=== PATIENT | female | born 1955 | race Caucasian/White ===

== ENCOUNTER → 2017-01-27 | Outpatient (CLI) | payer MEDICARE, OTHER ==
[~2017-01-27] MED LIST: ABILIFY2 MG PO; ACETAMINOPHEN325 MG PO; ADVAIR 100-501 EACH INH; ADVOCATE SYRIN1 EAC1; ALBUTEROL2.5 MG/31 INH; ALENDRONATE SOD70 MG PO; ANTI-ITCH28 GM TOP; ARIPIPRAZOLE5 MG PO; ASPIRIN LO-DOSE81 MG PO; AUGMENTIN875 MG PO; AZELASTINE HCL6 ML; AZELASTINE HCL6 ML OPHTH; AZELASTINE137 MCG/0. NOSE; BACTRIM DS1 TAB PO; BENADRYL25 MG PO; BLOOD GLUCOSE1 EAC7; BOOST GLUCOSE237 ML PO; BRILINTA90 MG PO; CALCIUM 500 +1 EAC5 PO; CALCIUM CARBON600 MG; CIPRO500 MG PO; CLARINEX5 MG PO; COZAAR100 MG PO; CREON 121 CAP PO; CREON PO; DELTASONE10 MG PO; DELTASONE20 MG PO; DELTASONE5 MG PO; DRISDOL 5050000 UNIT PO; ENSURE COMPLET237 ML PO; EUCERIN INTENS113 GM TOP; FEOSOL325 MG PO; FLAGYL500 MG PO; FLEXERIL10 MG PO; FLONASE 50 MCG/16 GM NOSE; FLORASTOR250 MG PO; FOSAMAX70 MG PO; GABAPENTIN300 MG PO; GLUCAGON 1 MG PE1 MG SUB-Q; GLUCAGON/GLUCAGE1 MG IM; GLUCOPHAGE1000 MG PO; GLUCOSE4 GM PO; GLUCOTROL10 MG PO; HUMALOG100 UNIT/1 SUB-Q; HUMULIN 70100 UNIT/M SUB-Q; IMODIUM2 MG PO; K-TAB ER20 MEQ PO; LACTINEX (FLORA1 TAB PO; LASIX20 MG PO; LASIX40 MG PO; LEVEMIR100 UNIT/1 SUB-Q; LEVOTHROID (SY50 MCG PO; LISINOPRIL30 MG PO; MAALOX LIQ UNIT30 ML PO; MACROBID100 MG PO; MAG-OX-400(241400 MG PO; MAGOX 400400 MG PO; MILK OF MA400 MG/5 M PO; MINERIN CREME454 GM TOP; MINOCIN100 M2 PO; MIRTAZAPINE7.5 MG PO; NATURAL BALANCE15 ML OPHTH; NEXIUM40 MG PO; NICODERM/HABITR21 MG TRANS; NORCO 5-325 MG1 TAB PO; NORCO 5-325 TA1 EACH PO; NORVASC5 MG PO; NOVOLOG FL100 UNIT/1 SUB-Q; NOVOLOG MI100 UNIT/1 SUB-Q; NOVOLOG100 UNIT/M SUB-Q; OCEAN NASAL) (A44 ML; OCEAN NASAL) (A44 ML NOSE; OSCAL + D500 MG PO; PATANOL 0.1% DR0.1 % OPHTH; PHILLIPS500 MG PO; PRINIVIL OR ZES10 MG PO; PROTONIX40 MG PO; PROVENTIL OR V6.7 GM INH; REMERON15 MG PO; ROBITUSSIN100 MG/5 M PO; SARNA222 ML TOP; SINGULAIR10 MG; SINGULAIR10 MG PO; SODIUM BICARBO650 MG PO; SYMBICORT 80-10.2 GM INH; TEARGEN1 BOT OPHTH; TEMOVATE30 GM TOP; TESSALON PERLE100 MG PO; THERAGRAN-M1 TAB PO; TOPROL XL 5050 MG PO; TOPROL XL25 MG PO; TRIACET 0.1% 8080 GM TOP; TRIAMCINOLONE454 GM TOP; TUMS EX PO; TUMS REGULAR ST1 TAB PO; TYLENOL325 MG PO; ULTRAM50 MG PO; VITAMIN A10000 UNIT PO; VITAMIN D-32000 UNI1 PO; VITAMIN D2000 UNI1 PO; ZAROXOLYN5 MG; ZEASORB71 GM TOP; ZOFRAN4 MG PO; ZYPREXA ZYDI5 MG PO; ZYRTEC10 MG PO
== END ==
LOC: LFPA 12:17
DX: E50.9 Vitamin A deficiency, unspecified (principal); M81.0 Age-related osteoporosis without current pathological fracture

== ENCOUNTER → 2017-03-31 | Outpatient (CLI) | payer MEDICARE, OTHER | END | disposition disaster alternative care site (69) | LOC: LFPA 09:52 | DX: E55.9 Vitamin D deficiency, unspecified (principal); E50.9 Vitamin A deficiency, unspecified ==

== ENCOUNTER → 2017-05-12 | Outpatient (CLI) | payer MEDICARE, OTHER | END | disposition disaster alternative care site (69) | LOC: LFPA 09:37 | DX: E50.9 Vitamin A deficiency, unspecified (principal) ==

== ENCOUNTER 2017-05-22 07:04 | Inpatient (IN) | payer MEDICARE, OTHER, MEDICAID ==
[~2017-05-22] VITALS: Ht 175.3 cm; Wt 79.1 kg
--- NOTE | ~2017-05-22 | CON ---
PATIENT'S NAME: CHA PRADO [facility] AGE: 61 Y [address] ROOM: [address] [address] LOCATION: [facility] [place] ADMIT DATE: 05/25/2017 Consultation DISCHARGE DATE: FAMILY PHYSICIAN: Brennon Cohen MD ATTENDING PHYSICIAN: FAHEEM TAYLOR DATE OF CONSULTATION: 05/26/2017 IDENTIFYING DATA: Cha is a 61-year-old . She is an [place] female, who lives in an assisted living facility in [place], admitted for a skin rash, seen on a consultation requested by the hospitalist for evaluation of her irritability and aggression. The patient was seen one-to-one in her room today. More than 50% of time spent in counseling and coordination of care. Information also obtained from the nurse, Monica. CHIEF COMPLAINT: "Life has been hell for 4 years." HISTORY OF PRESENT ILLNESS: The patient states that she is very frustrated with all the things going on. She is frustrated with being in the hospital. States that she is being forced to stay here. Everyday they find new things to keep her here. States that her kids do not treat her well. It has been a mess. Her 4 years ago and things have not been the same since. States that she has been put in an assisted living facility after she was in a care home as they felt that she could not keep herself safe. She had broken her right hip twice, left hip once, had injury to her hand and sepsis related to that. Recently, she has been hospitalized secondary to having an allergic reaction to a medication. States that all she wants is to just get her dog and go back home, but her children are trying to sell her dog. She wants her bank account back, and she is upset that she has no rights. Feels ignored and is just frustrated at having all the different health issues. Denies feeling hopeless or helpless. No thoughts of hurting or killing herself or anybody else. No racing thoughts or feeling hyper. Denies seeing things or hearing things which other people cannot hear or see. PAST PSYCHIATRIC HISTORY: None. Never been seen by a psychiatrist. Never been on psychotropic medications. MEDICAL AND SURGICAL HISTORY: Has multiple health issues. Has history of diabetes, hypertension, seasonal allergies, status post multiple hip fractures. For more, refer to history and physical. No head injuries or seizures. PATIENT'S NAME: CHA PRADO [facility] AGE: 61 Y [address] ROOM: [id number] [place], [place] [address] LOCATION: [facility] [place] ADMIT DATE: 05/25/2017 Consultation DISCHARGE DATE: FAMILY PHYSICIAN: Brennon Cohen MD ATTENDING PHYSICIAN: FAHEEM TAYLOR ALLERGIES: THE PATIENT IS ALLERGIC TO MORPHINE, OXYCODONE, AND GABAPENTIN. DRUG AND ALCOHOL HISTORY: The patient denies any use of drugs or alcohol. FAMILY HISTORY: Denies any psychiatric history in the family. PERSONAL AND SOCIAL HISTORY: The patient is originally from [place]. States that she moved to [place] and then got there. Denies any history of abuse growing up. No history of any physical or sexual trauma. She currently is a , has twins, and has a court-appointed guardian now. MENTAL STATUS EXAM: The patient is alert, awake, and oriented to time, place, and person. She is cooperative with fair hygiene, fair grooming. Appropriately dressed. Good eye contact. Psychomotor retardation. No rigidity or tremor. Affect is of decreased range, increased intensity. Mood is irritable. Speech is fluent. No thought disorder. No suicidal or homicidal ideation. Has some persecutory delusions. Poor insight, poor judgment. No problem with memory and concentration. ASSESSMENT: 1. Adjustment disorder, chronic with mixed emotions. 2. Rule out mood disorder secondary to general medical conditions including her variation in blood sugars. 3. Rule out impulse control disorder, unspecified. PLAN: At this time, I recommended that the patient be given a trial of Abilify 2 mg at bedtime to help with mood stability, irritability, and impulsivity. The patient is not willing to comply with it. The primary provider will have to get consent from the patient's guardian and consider giving a trial of that medication. [place] choice would have been a mood stabilizer like Depakote, but considering the patient's recent reaction to gabapentin and she had a rash, I am not very open to trying that. Abilify is a good option as well as it will help with paranoia to which the patient has been exhibiting. Monitor closely for any treatment-emergent side effects. Continue to monitor her physical health as other variable blood sugars can contribute to the anger and the irritability as well. The patient will be seen as needed by the Psychiatry Service. PATIENT'S NAME: CHA PRADO [facility] AGE: 61 Y [address] ROOM: [place] [address] LOCATION: [facility] [place] ADMIT DATE: 05/25/2017 Consultation DISCHARGE DATE: FAMILY PHYSICIAN: Brennon Cohen MD ATTENDING PHYSICIAN: FAHEEM TAYLOR Thanks for this interesting referral. MD YAHIR DAMIAN/modl /[id number] d: 05/26/174 t: 05/27/17 1349, CONSULTATION REPORT
--- NOTE | ~2017-05-22 | ER ---
PATIENT'S NAME: NIRANJAN PRADO [facility] AGE: 61 Y [address] ROOM: [place] [address] LOCATION: [facility] [place] ADMIT DATE: 05/22/2017 ER/Outpatient Report DISCHARGE DATE: FAMILY PHYSICIAN: Brennon Cohen MD ATTENDING PHYSICIAN: FAHEEM TAYLOR CHIEF COMPLAINT: Rash and foot pain. HISTORY OF PRESENT ILLNESS: Ms. Prado presents by ambulance for evaluation of rash and foot pain. Her rash has been present for the last 3-4 days. It has been worse since she had an increase in her gabapentin. She states that she was placed on a steroid cream by basketball player on Thursday, but feels the rash is continuing to worsen. She states that it is so painful she cannot sleep or even can attempt to walk at this time. It is unclear why but she has a court-appointed guardian, named Evette Parnell whom I spoke with. No other acute issues. She does not endorse any other particular concerns. PAST MEDICAL HISTORY: Reviewed from prior records and facility records and are documented on the record and reviewed by me. SOCIAL HISTORY: Reviewed from prior records and facility records and are documented on the record and reviewed by me. MEDICATIONS: Reviewed from prior records and facility records and are documented on the record and reviewed by me. ALLERGIES: REVIEWED FROM PRIOR RECORDS AND FACILITY RECORDS AND ARE DOCUMENTED ON THE RECORD AND REVIEWED BY ME. REVIEW OF SYSTEMS: All systems reviewed and negative except as noted in the HPI. PHYSICAL EXAMINATION: VITAL SIGNS: Blood pressure 161/70, pulse 93, respiratory rate 20, temperature 97.5, and SpO2 is 100% on room air. Pain is 8/10. GENERAL: Age-appropriate female, slightly abrasive but otherwise unremarkable. In obvious discomfort, but no pain or distress. NEUROLOGIC: The patient is awake and alert. GCS is 15. No focal deficits. No asymmetry. Moves all extremities. PATIENT'S NAME: NIRANJAN PRADO [facility] AGE: 61 Y [address] ROOM: [place] [address] LOCATION: [facility] [place] ADMIT DATE: 05/22/2017 ER/Outpatient Report DISCHARGE DATE: FAMILY PHYSICIAN: Brennon Cohen MD ATTENDING PHYSICIAN: FAHEEM TAYLOR HEENT: Normocephalic, atraumatic. Eyes are PERRL. Oropharynx is clear. NECK: Supple. Trachea is midline. CHEST/HEART: Regular rate and rhythm. No murmurs. LUNGS: Clear to auscultation bilateral. No rhonchi, wheezes, or rales. ABDOMEN: Soft, nontender, and nondistended. No rebound or guarding. EXTREMITIES: Warm and well perfused. BACK: Grossly normal to inspection and palpation. SKIN: Notable for a macular rash, most prominent on the lower extremities and posterior aspects. It does tend to spare the crura. There is some excoriation the bilateral inguinal regions, however. The rash is warm, it is very tender to the touch. There is no desquamation or bleeding. The oral mucosa does not appear to be involved. LABORATORY DATA AND X-RAYS: Chest x-ray was unremarkable per my review. Lactate is 1.4. CMS: Sodium of 147, chloride of 119. Renal function is unremarkable. LFTs grossly unremarkable, otherwise. CRP is below threshold. CBC: White count is 5.2, hemoglobin 11.1, and platelets of 213. ESR is 12. INR is 1. Procalcitonin is undetectable. IMPRESSION: 1. Rash with significant pain and inability to walk. 2. Mild hypernatremia. 3. Uncontrolled pain. EMERGENCY DEPARTMENT COURSE: The patient was seen and evaluated as above. Her rash is not consistent with Lima-Owen syndrome or toxic epidermal necrolysis at this time. She is, however, having poor response to her current outpatient regimen. She was given fentanyl for pain, which did help her feel quite a bit better. She will need to be admitted for this issue, as she is currently unable to walk. No evidence of pneumonia or other infection at this time, otherwise. She was given some Benadryl and Solu-Medrol to help with her rash per the hospitalist. She will be admitted to their service for further evaluation and treatment. MD NADEEM DC/carlos eduardo /[id number] d: 05/23/17 0013 t: 05/25/17717, OUTPATIENT REPORT
--- NOTE | ~2017-05-22 | HP ---
PATIENT'S NAME: NIRANJAN PRADO [facility] AGE: 61 Y [address] ROOM: [address] [address] [place] [facility] [place]: 05/22/2017 History & Physical DISCHARGE DATE: FAMILY PHYSICIAN: Brennon Cohen MD ATTENDING PHYSICIAN: FAHEEM TAYLOR DATE OF SERVICE: CHIEF COMPLAINT: Generalized skin rash. HISTORY OF PRESENT ILLNESS: This is a 61-year-old female who says that roughly about 1-1/2 months ago, the patient was put on medication with gabapentin and patient develop a generalized skin rash with a burning sensation on the rash over the body. The medication at that time, was stopped and the patient was treated with topical steroids. She was on topical steroids for 3 weeks and her rash totally went away. However, during her followup with her medical provider one week ago because of patient's diabetes, peripheral neuropathy, the patient was put back again on gabapentin at 300 mg t.i.d. and just two days ago, again the patient developed the same type of rash like last time with a generalized rash and painful rash over the body. The rash started on bilateral thighs and then spread to the other parts of the body. Because of this, the patient came here for evaluation. The patient says that the first time she had this rash she also had a skin biopsy done by a knot borer. This confirmed it was a drug reaction. She also states that she has a few days of urinary frequency, urgency, and dysuria, and some chills. She denies any other symptoms. She also has been feeling very thirsty, however, the place which she lives says that they do not really bring her much water to drink and she was constantly asking for water to drink at the place that she currently lives. REVIEW OF SYSTEMS: As mentioned in history of present illness. All other systems were reviewed and were negative except for those mentioned in the history of present illness. PAST MEDICAL HISTORY: 1. History of C. difficile in the past. 2. Hypertension. 3. Diabetes, type 2. 4. History of recurrent UTIs in the past. 5. Coronary artery disease status post one drug-eluting stent to the right PATIENT'S NAME: NIRANJAN PRADO [facility] AGE: 61 Y [address] ROOM: [address] [address] [place] [facility] [place]: 05/22/2017 History & Physical DISCHARGE DATE: FAMILY PHYSICIAN: Brennon Cohen MD ATTENDING PHYSICIAN: FAHEEM TAYLOR coronary artery in the past. 6. Most recent echocardiogram was done in September 2016 showed EF of 65% with grade 1 diastolic dysfunction. 7. Asthma. ALLERGIES: CURRENTLY MEDICATION LIST IS BEING RECONCILED, BUT GABAPENTIN DEFINITELY IS ONE OF HER ALLERGIC MEDICATION THAT CAUSED THE RASH TODAY. HOME MEDICATIONS: Currently are being reconciled. SOCIAL HISTORY: The patient was a former cigarette smoker. She quit many years ago. She was a very light smoker about 2 to 3 cigarettes per day only for 2 years. She denies any alcohol or any illegal drug use. PAST SURGICAL HISTORY: 1. Status post stent in RCA. 2. Cholecystectomy. FAMILY HISTORY: Father has hypertension. Mother from cancer. She does not remember which type. PHYSICAL EXAMINATION: VITAL SIGNS: Temperature 98.0, respirations 14, blood pressure 110/75, heart rate 80, and saturation 99% on room air. GENERAL APPEARANCE: Alert and oriented x3. In no acute distress. HEENT: Pupils equally round and reactive to light. Extraocular muscles intact. Anicteric sclerae. Nasal turbinates are normal bilaterally. Dry oral mucosa. RESPIRATORY: Clear. No rales. No rhonchi. No wheezing. No crackles. ABDOMEN: Soft, nontender, nondistended, bowel sounds present, and no mass. SKIN: Generalized erythematous rash with scaling of the skin, but there is no oral mucosa involvement, and there is no open sore, there is no drainage, there is no ulcer, and there is no cyanosis. The rash is tender to touch and is not very itchy. There is no sloughing of the skin. There is no blister, and there is no vesicle. There is no papule. The rash is flat and erythematous. EXTREMITIES: No edema in the upper or lower extremities. NEUROLOGIC: Grossly nonfocal. LABORATORY DATA: Lactic acid 1.4. White blood cells 5.2, hemoglobin 11.1, hematocrit 31.8, MCV PATIENT'S NAME: NIRANJAN PRADO [facility] AGE: 61 Y [address] ROOM: [address] [address] [place] [facility] [place] DATE: 05/22/2017 History & Physical DISCHARGE DATE: FAMILY PHYSICIAN: Brennon Cohen MD ATTENDING PHYSICIAN: CLAUDIA,MAYEN of 100, and platelets 213,000. Glucose 109, BUN 8, creatinine 0.6, sodium 147, potassium 4.5, chloride 119, CO2 of 20, calcium 8.3, total protein 4.8, albumin 1.7, AST 29, ALT 31, alkaline phosphatase 89, total bilirubin 0.5, anion gap 12.5, globulin 3.1, and GFR is more than 60. ESR 12, INR 1.04, and PTT 25. UA; pending. CRP is less than 0.29. Procalcitonin is less than 0.05. IMAGING STUDIES: Chest x-ray on admission shows lungs are clear with no focal infiltrate or effusion or pneumothorax. There is mild prominence of the perihilar interstitial marking. Uncertain, this is acute or chronic. ASSESSMENT AND PLAN: 1. Regarding her macular rash secondary to gabapentin: Continue the same way that she was treated last time because she was totally healed last time. Therefore, we will continue with the topical steroids, which currently the medication list is being reconciled. I will also continue with the p.o. prednisone, I will do 60 mg p.o. daily. She already got 125 mg IV in the emergency room. I will also continue p.o. Benadryl 25 mg standing dose of 3 to 4 times a day. She only got 1 dose of 25 mg IV in the emergency room. Watch her closely for any change in the rash. Further plan will depend on clinical course. 2. Regarding her dysuria: Currently UA is pending. If it is positive and given the patient does have dysuria, I will start her on the antibiotics for urinary tract infection coverage. However, I am awaiting for the UA to come back first. 3. Regarding her history of Clostridium difficile in the past: No active issue. 4. Regarding her diabetes, type 2: Use sliding scale insulin low dose a.c. and at bedtime NovoLog and titrate as needed. Continue the home long- acting insulin by cutting by half and they can titrate if necessary. Continue diabetic diet. 5. Regarding her hypertension: Currently the medication list is being reconciled. I will hold the blood pressure medication for now given that I will give her some IV fluids for hydration due to the decreased oral intake and also because of her hypernatremia from decreased free water intake. 6. Regarding her hypernatremia: This is asymptomatic. This is from the decreased free water intake. The plan will be encouraged to diet and oral intake, and fluid intake. Also the patient looks dry on examination. I will give her 1 L of normal saline in acute setting of dehydration, and I will give her 500 mL of normal saline over 1 hour of acute phase of the dehydration, and then I will check a sodium after that, and then can decide about further IV fluids choice. 7. Regarding her grade 1 diastolic dysfunction: No active issue. The PATIENT'S NAME: NIRANJAN PRADO [facility] AGE: 61 Y [address] ROOM: [place] [address] [place] [facility] [place] DATE: 05/22/2017 History & Physical DISCHARGE DATE: FAMILY PHYSICIAN: Brennon Cohen MD ATTENDING PHYSICIAN: FAHEEM TAYLOR patient was dry on examination. 8. Deep venous thrombosis prophylaxis: The patient will be on Lovenox subcutaneous once daily. 9. Code status: She is a DNR but not DNI. Time spent in care on the day of admission 45 minutes, where 25 minutes were spent in counseling, including going over the plan of care and also addressing her questions and concerns to her satisfaction. The remainder of the time was spent on physical examination and the chart review, and also on interview. Further plan will depend on clinical course. FAHEEM TAYLOR MD CC/modl /[id number] D: T: HISTORY & PHYSICAL
--- NOTE | ~2017-05-22 | DS ---
PATIENT'S NAME: NIRANJAN PRADO [facility] AGE: 61 Y [address] ROOM: [address] [address] [place] [facility] [place]: 05/25/2017 Discharge Summary DISCHARGE DATE: 05/28/2017 FAMILY PHYSICIAN: Brennon Cohen MD ATTENDING PHYSICIAN: Mark Haddad FINAL DIAGNOSES: 1. Drug-induced rash due to gabapentin. 2. Hypernatremia. 3. Urinary tract infection. 4. Insulin-dependent diabetes mellitus. 5. Clostridium difficile colitis. 6. Adjustment disorder. Please see the history and physical dictated by Dr. Haddad for details of admission. In short, the patient had been started on Neurontin and developed a rash. LABORATORY DATA: On admit, sodium was 147, got as high as 149 on the , most prior to discharge was 148. Potassium on admission was 4.6, most prior to discharge was 3.1, she was given replacement. Chloride on admission 119, it was 120 at discharge. BUN on admission 8, discharge 4. Creatinine on admission was 0.6, discharge 0.4. Liver enzymes were normal. Phosphorus on admission was 1.8, discharge 2.1. Hemoglobin A1c was 7.3. White blood cell count on admission was 5.2 with a hemoglobin of 11.1, hematocrit 31.8, platelet count 213. Sedimentation rate 12. PTT 25, protime 10.9, INR 1. Most prior to discharge, white blood cell count 4.7, hemoglobin 9.9, and hematocrit 27.6. Prolactin on admission was less than 0.05. Urinalysis on admission showed full field of whites, many bacteria. The urine culture grew greater than 100,000 colonies of E. coli. RADIOLOGIC DATA: Chest x-ray on admission did not show any acute changes. HOSPITAL COURSE: The patient was admitted after presenting to the emergency room with a drug rash that was felt to be secondary to Neurontin. She was also found to be hypernatremic, which was felt to be due to decreased oral intake. The patient was admitted to the floor. It was noted that she was hyperglycemic at the time of admission. She was started on sliding scale insulin and adjustments were made. She was started on Rocephin 1 g IV q.24 hours based upon her urine results. Second hospital day, she was feeling better. She did hope to go home, but at that time was not able to be discharged due to needing to improve her ambulation and the decision was made to treat her with 3 days of Rocephin. We did have to make adjustments that could help control her blood sugars. She developed diarrhea and tested positive for C. diff. She was initiated on Flagyl. She was having PATIENT'S NAME: NIRANJAN PRADO [facility] AGE: 61 Y [address] ROOM: [address] [address] [place] [facility] [place]: 05/25/2017 Discharge Summary DISCHARGE DATE: 05/28/2017 FAMILY PHYSICIAN: Brennon Cohen MD ATTENDING PHYSICIAN: Mark Haddad significant aggressive behaviors, so it was felt that psychiatrist should see here. They did see her and recommend that we start her on Abilify 2 mg at night. She reluctantly agreed. During the hospital stay at times when she was not eating her blood sugars were low, we did have to hold her noon dose of NovoLog. Her stools had actually improved and it was felt that she was stable for discharge and could be discharged back to [facility]. She is to follow up with Dr. Cohen in 4 to 5 days. She is to have a renal panel in 4 to 5 days. MEDICATIONS: 1. Creon 600 mg 3 times daily. 2. Hydrocodone 5/325 one tablet twice daily. 3. Abilify 2 mg at bedtime. 4. Flonase 2 sprays in each nostril at bedtime. 5. Insulin 70/30, 20 units in the morning and 5 units at night. 6. Synthroid 50 mcg daily. 7. Cozaar 100 mg daily. 8. 15 mg daily. 9. Flagyl 500 mg 3 times daily through June 02. 10. Florastor 250 mg daily while on the Flagyl. 11. Protonix 40 mg daily. 12. Vitamin D 50,000 units every 7 days. 13. Triamcinolone cream to rash as needed twice daily. 14. Advair 150/50 one puff twice daily. 15. Calcium with D 1000 mg twice daily. 16. Glucose 16 g p.o. daily for hypoglycemia. 17. Albuterol inhaled 1 puff every 4 hours. 18. Azelastine 1 spray in each nostril as needed daily. 19. Eucerin cream to apply 3 to 5 times daily. 20. Maalox 20 mg every 4 hours as needed for indigestion. 21. Milk of magnesia 30 mL daily as needed for constipation. 22. Natural Balance Tears 1 drop 4 times daily. 23. Albuterol inhaled 2 puffs every 4 hours as needed. 24. Tylenol 650 mg every 4 hours as needed for pain. PROGNOSIS: Overall prognosis at discharge is good. CHIDI DIALLO MD LAW/modl PATIENT'S NAME: NIRANJAN PRADO [facility] AGE: 61 Y [address] ROOM: [place] [address] [place] [facility] [place]: 05/25/2017 Discharge Summary DISCHARGE DATE: 05/28/2017 FAMILY PHYSICIAN: Brennon Cohen MD ATTENDING PHYSICIAN: Mark Haddad /[id number] d: 05/29/17 0329 t: 06/01/17 1509, DISCHARGE SUMMARY
[~2017-05-22 07:04] MED LIST changes: -ABILIFY2 MG PO; -ACETAMINOPHEN325 MG PO; -ADVAIR 100-501 EACH INH; -ALBUTEROL2.5 MG/31 INH; -ARIPIPRAZOLE5 MG PO; -AZELASTINE137 MCG/0. NOSE; -BOOST GLUCOSE237 ML PO; -COZAAR100 MG PO; -FLAGYL500 MG PO; -HUMULIN 70100 UNIT/M SUB-Q; -MAALOX LIQ UNIT30 ML PO; -MIRTAZAPINE7.5 MG PO; -NATURAL BALANCE15 ML OPHTH; -NOVOLOG FL100 UNIT/1 SUB-Q; -PROTONIX40 MG PO; -SARNA222 ML TOP; -THERAGRAN-M1 TAB PO; -TRIACET 0.1% 8080 GM TOP; -ZEASORB71 GM TOP; -ZOFRAN4 MG PO
[2017-05-22 07:37] LABS: BASOPHIL % 0.8 %; EOSINOPHIL # 0.2 K/uL (0.0-0.5); EOSINOPHIL % 3.5 %; HEMATOCRIT 31.8 % (33.0-46.0); HEMOGLOBIN 11.1 g/dL (10.0-15.0); IMMATURE GRANULOCYTE % 0.4 %; LYMPHOCYTE # 1.4 K/uL (0.8-4.0); LYMPHOCYTE % 26.9 %; MCH 34.9 pg (27.0-34.0); MCHC 34.9 gm/dL (32.0-36.5); MONOCYTE # 0.5 K/uL (0.0-1.0); MONOCYTE % 9.9 %; MPV 10.9 fl (9.4-12.4); NEUTROPHIL % 58.5 %; NRBC % 0 /100WBC (0-0.00); PLATELET COUNT 213 K/uL (150-450); RBC 3.18 M/uL (3.50-5.50); RDW-CV 15.8 % (11.9-14.6); WBC 5.2 K/uL (4.0-11.0)
[2017-05-22 07:44] LABS: INR - (THERAPEUTIC) 1.04 (0.92-1.07); PROTIME 10.9 SECONDS (9.8-11.4); PTT 25 SECONDS (25-32)
[2017-05-22 07:54] LABS: ALK PHOS 89 IU/L (33-138); ALT 31 IU/L (12-78); AST 29 IU/L (10-40); BLOOD UREA NITROGEN 8 mg/dL (6-24); CALCIUM 8.3 mg/dL (8.5-10.5); CO2 20 mMol/L (22-32); CREATININE 0.6 mg/dL (0.5-1.1); ESTIMATED GFR (MDRD EQUATION) > 60; POTASSIUM 4.5 mMol/L (3.7-5.1); TOTAL BILIRUBIN 0.5 mg/dL (0.0-1.5)
[2017-05-22 07:57] LABS: ALBUMIN 1.7 gm/dL (3.5-5.0); ANION GAP 12.5 (10.0-19.0); CHLORIDE 119 mMol/L (96-110); SODIUM 147 mMol/L (135-145); TOTAL PROTEIN 4.8 g/dL (6.0-8.4)
[2017-05-22] MEDS ORDERED: ADVAIR 100-501 EACH INH (10:02)
[2017-05-22] MEDS ORDERED: ALBUTEROL2.5 MG/31 INH (10:04)
[2017-05-22] MEDS ORDERED: AZELASTINE137 MCG/0. NOSE (10:08)
[2017-05-22] MEDS ORDERED: CREON PO (10:10)
[2017-05-22] MEDS ORDERED: DRISDOL 5050000 UNIT PO (10:12)
[2017-05-22] MEDS ORDERED: MINERIN CREME454 GM TOP (10:13)
[2017-05-22] MEDS ORDERED: FLONASE 50 MCG/16 GM NOSE (10:14)
[2017-05-22] MEDS ORDERED: BOOST GLUCOSE237 ML PO (10:15)
[2017-05-22] MEDS ORDERED: COZAAR100 MG PO (10:21)
[2017-05-22] MEDS ORDERED: MAALOX LIQ UNIT30 ML PO (10:23)
[2017-05-22] MEDS ORDERED: MILK OF MA400 MG/5 M PO (10:28)
[2017-05-22] MEDS ORDERED: THERAGRAN-M1 TAB PO (10:29)
[2017-05-22] MEDS ORDERED: NATURAL BALANCE15 ML OPHTH (10:31)
[2017-05-22] MEDS ORDERED: NOVOLOG MI100 UNIT/1 SUB-Q ×2 (10:38→10:39)
[2017-05-22] MEDS ORDERED: NOVOLOG FL100 UNIT/1 SUB-Q (10:41)
[2017-05-22] MEDS ORDERED: PROTONIX40 MG PO (10:42)
[2017-05-22] MEDS ORDERED: PROVENTIL OR V6.7 GM INH (10:43)
[2017-05-22] MEDS ORDERED: SARNA222 ML TOP (10:44)
[2017-05-22] MEDS ORDERED: TRIACET 0.1% 8080 GM TOP (10:49)
--- NOTE | 2017-05-22 10:49 | NUR ---
Patient is 61 yo female admitted this am from ER for generalized rash on her body. Patient states she was changed with meds because of the rash about a month ago and now the rash is worse again. patient c/o being very cold. extra blankets are on her. temp was taken, 98.1 po. room temp was also increased. patient lives in the Assisted Living Facility in [place]. states she has no contact with her kids, states she has a court appointed guardian only. patient has saline lock in right hand without erythema or edema noted at site, although pt c/o it burned when she was given something in it in the ER. patient is very easily aggitated and angry with answering questions. Education is given as documented. patient denies questions. Refuses pneumatics at this time. Patient's 5 wishes booklet was printed from chart beena. It does say she wants to be a full code, however patient states at this time that "I want to be a DNR." call light is within reach. denies needs at this time. Report is given to ELZA Anderson.
[2017-05-22] MEDS ORDERED: ACETAMINOPHEN325 MG PO (10:50)
[2017-05-22 12:10] LABS: BILIRUBIN URINE NEGATIVE (NEGATIVE); BLOOD URINE 10 /UL (NEGATIVE); COLOR URINE YELLOW (YELLOW); GLUCOSE URINE NEGATIVE (NEGATIVE); KETONE URINE NEGATIVE (NEGATIVE); LEUKOCYTES URINE 500 /UL (NEGATIVE); NITRITE URINE POSITIVE (NEGATIVE); PROTEIN URINE NEGATIVE (NEGATIVE); TURBIDITY URINE 2+ (CLEAR); UROBILINOGEN URINE NORMAL (NORMAL)
[2017-05-22 12:25] LABS: AMORPHOUS URINE 1+ (NEGATIVE); BACTERIA URINE MANY (NEGATIVE); EPITHELIAL URINE NEGATIVE #/HPF (NEGATIVE); MUCUS URINE 1+ (NEGATIVE); WBC URINE FULL FIELD #/HPF (NEGATIVE)
[2017-05-22 15:34] LABS: BLOOD UREA NITROGEN 7 mg/dL (6-24); CO2 19 mMol/L (22-32); CREATININE 0.8 mg/dL (0.5-1.1); ESTIMATED GFR (MDRD EQUATION) > 60; POTASSIUM 4.6 mMol/L (3.7-5.1)
[2017-05-22 15:35] LABS: ANION GAP 13.6 (10.0-19.0); CHLORIDE 118 mMol/L (96-110); SODIUM 146 mMol/L (135-145)
--- NOTE | 2017-05-22 15:59 | NUR ---
Significant Event: PT AO. VSS ON RA, AFEBRILE. UA SENT- ABX STARTED. NEW IV STARTED TO L FA. BOLUS OF 500ML NS GAVE. LABS RECHECKED THIS AFTERNOON. PT PLACED IN CONTACT ISOLATION, HX MRSA. HAS RASH COVERING ENTIRE BODY, SOME AREAS ARE WEEPING AND CRACKING. BLE ARE VERY RED. RASH IS PAINFUL TO TOUCH. PT STATES IT SHEEHAN. AMBULATES WITH SBA, WALKER AND GAITBELT. AC HS ACCUCHECKS, DIABETIC DIET. NH AND GUARDIAN CALLED AND SPOKE WITH PRIMARY NURSE ABOUT POSSIBILITY OF GETTING A PSYCH EVAL WHILE HERE DUE TO PT BEHAVIORS. NOTIFIED DR TAYLOR AND GAVE HIM GUARDIANS PHONE NUMBER. PT HAD OUTBURST WHEN DIET WAS NOT PUT IN COMPUTER FAST ENOUGH AND KNOCKED EVERYTHING OFF OF BEDSIDE TRAY. PT WAS VERY IRRITABLE, HAS CALMED AFTER LEAVING HER ALONE FOR A BIT. Follow up: [facility]AFETY, MONITOR LABS,
[2017-05-22 23:21] LABS: BLOOD UREA NITROGEN 8 mg/dL (6-24); CO2 18 mMol/L (22-32); CREATININE 0.8 mg/dL (0.5-1.1); ESTIMATED GFR (MDRD EQUATION) > 60; POTASSIUM 3.8 mMol/L (3.7-5.1)
[2017-05-22 23:23] LABS: ANION GAP 14.8 (10.0-19.0); CHLORIDE 119 mMol/L (96-110); SODIUM 148 mMol/L (135-145)
--- NOTE | 2017-05-23 04:03 | NUR ---
PT AO. VSS. RA. 1 assist with walker. IV antibx. IV in L) forearm with fluids at 60ml. Changed fluids to NS from LR. Contact precautions for hx. c-diff. Rash all over body that is very red and painful to touch. Pt. refused ointment ordered for rash because she said it velez too much. ADA. Accuchecks every 4 hours. Insulin given x2: 18units and 6 units. Last check at 0300 was 91. Pt. refused OJ offered. Psych eval pending. Pt. irritable, angry, and hard to please.
[2017-05-23 05:43] LABS: BASOPHIL % 0.1 %; EOSINOPHIL % 0.5 %; HEMATOCRIT 27.2 % (33.0-46.0); HEMOGLOBIN 9.6 g/dL (10.0-15.0); IMMATURE GRANULOCYTE % 0.2 %; LYMPHOCYTE % 25.1 %; MCHC 35.3 gm/dL (32.0-36.5); MCV 99.3 fl (83.0-98.0); MONOCYTE % 12.2 %; NEUTROPHIL % 61.9 %; NRBC % 0 /100WBC (0-0.00); PLATELET COUNT 192 K/uL (150-450); RBC 2.74 M/uL (3.50-5.50); RDW-CV 15.9 % (11.9-14.6)
[2017-05-23 06:00] LABS: BLOOD UREA NITROGEN 8 mg/dL (6-24); CALCIUM 8.6 mg/dL (8.5-10.5); CO2 21 mMol/L (22-32); CREATININE 0.5 mg/dL (0.5-1.1); ESTIMATED GFR (MDRD EQUATION) > 60; POTASSIUM 4.1 mMol/L (3.7-5.1)
[2017-05-23 06:02] LABS: ANION GAP 11.1 (10.0-19.0); CHLORIDE 121 mMol/L (96-110); SODIUM 149 mMol/L (135-145)
[2017-05-23 16:24] LABS: BLOOD UREA NITROGEN 9 mg/dL (6-24); CALCIUM 8.3 mg/dL (8.5-10.5); CO2 20 mMol/L (22-32); CREATININE 0.7 mg/dL (0.5-1.1); ESTIMATED GFR (MDRD EQUATION) > 60
[2017-05-23 16:34] LABS: ALBUMIN 1.5 gm/dL (3.5-5.0); ANION GAP 11.4 (10.0-19.0); CHLORIDE 120 mMol/L (96-110); PHOSPHORUS 1.8 mg/dL (2.5-4.9); POTASSIUM 4.4 mMol/L (3.7-5.1); SODIUM 147 mMol/L (135-145)
--- NOTE | 2017-05-23 18:30 | NUR ---
Significant Event: Patient's mood has flucuated throughout the day from irritable and complaining to nice and cooperative. Insulin changed back to how it was at [facility] per patient request. Accuchecks also able to be changed from q4h to AC/HS. Patient up with 1 assist to and from bathroom. Refused to have triamcinolone cream applied this a.m. but allowed RECORD PRESS OPERATOR to apply aloe vesta from head to toe. Did have complaint of pain but patient was given norco and stated that it was helping. Doctor considered sending patient back to [facility] today but they do not take patient's back over the weekend so patient is here until Thursday. Follow up: Continue to monitor.
--- NOTE | 2017-05-24 05:30 | NUR ---
Significant Event: Pt irritable at the beginning of the shift. Did become more cooperative and talkative as the night progressed. Up with SBA and walker. Refused the cream for her rash as ordered, stated it velez. Also refused aloe vesta. HS accucheck was critical and notified, MD did not change any of her home insulins. Vital signs stable, afebrile. Follow up:
--- NOTE | 2017-05-24 15:08 | NUR ---
Significant Event: Patient up with 1 assist and walker. Patient stated she had 1 loose BM over night and has had [address] Anders notified and order received for a stool test for Cdiff--patient has not yet had a stools to send down. Orders also received for saline lock IV, florastor BID, and lab in the a.m. Patient also had a low blood sugar this afternoon. Patient given a.m. insulin 70/30--25 units. Patient then very upset about nutrition services not sending up plain sugar for her to have on her cereal. Tried twice to explain to patient that nutrition services did not have the authority to send up plain sugar and was interrupted twice by patient still complaining that "there was no reason they shouldn't be able to send her up some sugar" and that "the only time I use real sugar is on my cereal in the morning" Was finally able to explain about nutrition services and that I could get her some sugar and patient shoves the tray away and says "Well forget the whole thing. I just won't eat then." Explained to patient that it was her choice. Did bring sugar in and placed it on breakfast tray and told patient that her sugar was here if she changed her mind. Moved tray back over in reach of patient and patient again shoved tray away and said "I said I wasn't eating" I looked at patient and again reiterated that it was her choice. Patient did eat all of lunch without terrible hassle but seemed very put out when nurse went to give patient her fast acting insulin. Around 1430 nurse called into room and patient stated that she thought her blood sugar was running low. Checked blood sugar and result after repeat was 39. Gave patient some orange juice and alma crackers and recheck of blood sugar was 79. Will recheck again shortly. Follow up: Continue to monitor.
[2017-05-25 05:22] LABS: BASOPHIL % 0.4 %; EOSINOPHIL # 0.2 K/uL (0.0-0.5); EOSINOPHIL % 4.3 %; HEMOGLOBIN 9.2 g/dL (10.0-15.0); IMMATURE GRANULOCYTE % 0.2 %; LYMPHOCYTE # 2.2 K/uL (0.8-4.0); MCH 35.4 pg (27.0-34.0); MCHC 35.4 gm/dL (32.0-36.5); MONOCYTE # 0.5 K/uL (0.0-1.0); MONOCYTE % 9.9 %; MPV 10.9 fl (9.4-12.4); NEUTROPHIL % 40.2 %; NRBC % 0 /100WBC (0-0.00); PLATELET COUNT 166 K/uL (150-450); RDW-CV 15.7 % (11.9-14.6); WBC 4.9 K/uL (4.0-11.0)
[2017-05-25 05:41] LABS: BLOOD UREA NITROGEN 8 mg/dL (6-24); CO2 20 mMol/L (22-32); CREATININE 0.5 mg/dL (0.5-1.1); ESTIMATED GFR (MDRD EQUATION) > 60; PHOSPHORUS 2.2 mg/dL (2.5-4.9); POTASSIUM 3.2 mMol/L (3.7-5.1)
[2017-05-25 05:42] LABS: ALBUMIN 1.4 gm/dL (3.5-5.0); ANION GAP 10.2 (10.0-19.0); CHLORIDE 120 mMol/L (96-110); SODIUM 147 mMol/L (135-145)
--- NOTE | 2017-05-25 08:17 | NUR ---
Significant Event: Pt has been cooperative and thankful for cares this shift. Does refuse some treatments, ie. cream to body and eye drops and brushing her teeth. Multiple loose stools this shift. VSS. Afebrile. Rash getting better throughout the body. Wants to go back to [facility] today. Follow up:
--- NOTE | 2017-05-25 11:25 | NUR ---
Called [facility] to see if patient can return with c-diff, left a message for Aviva. 1310 Aviva called back. They have concerns about patients behaviors and would really like a psych consult or med change to be made. Will pass onto to the doctor. Would like c-diff cleared because they can't keep resident in her apartment. 1355 Updated Hazel Thakkar on Vlad's request. 1410 Called patients guardian Evette Parnell #[phone]. She wants patient to go back to [facility]. Also agrees patient needs a mood stabilizer or antidepressant and would like a psych eval. 1420 Called Hazel Thakkar and updated her on Guardians thought. Psych consult has already been made.
--- NOTE | 2017-05-25 16:07 | NUR ---
Received orders to begin physical therapy. student services coordinator/RN asked to hold PT this afternoon secondary to low blood sugar. Will attempt to evaluate tomorrow morning. Sarah Gallardo, PT 05/25/17
--- NOTE | 2017-05-25 17:32 | NUR ---
Significant Event: PT AO. VSS ON RA, AFEBRILE. IN CONTACT ISOLATION FOR CDIFF. UP WITH SBA, WALKER. PT REFUSES GAITBELT. PT/OT ORDERS RECIEVED. IVF RUNNING 1/2NS TO R FA, 40MEQ IV KCL AND 40MEQ PO KCL TODAY. ACHS ACCUCHECKS, STARTED ON CARB COUNT. HAS SCHEDULED PAIN MEDICATIONS BID. IV ABX CHANGED TO PO. PSYCH CONSULT OBTAINED PER COURT APPOINTED GUARDIANS REQUEST, PT CAN NOT REFUSE DUE TO GUARDIAN OKAYING IT. Follow up: MONITOR BLOOD SUGARS, PSYCH CONSULT
--- NOTE | 2017-05-25 18:55 | NUR ---
I HAVE REVIEWED AND AGREE WITH CHARTING COMPLETED BY [employer] STUDENT BRANDON MCCALLUM FROM [id number] [facility]
[2017-05-26 05:38] LABS: BLOOD UREA NITROGEN 5 mg/dL (6-24); CALCIUM 7.8 mg/dL (8.5-10.5); CO2 20 mMol/L (22-32); CREATININE 0.4 mg/dL (0.5-1.1); ESTIMATED GFR (MDRD EQUATION) > 60; MAGNESIUM 1.4 mg/dL (1.8-2.6); POTASSIUM 3.8 mMol/L (3.7-5.1)
--- NOTE | 2017-05-26 05:40 | NUR ---
Significant Event: Pt remains in isolation for C-diff. Has had about 10 stools this shift. Can get irritable at times, but mostly pleasant all shift. Aloe applied to whole body and pt ichy more than the last two nights . Follow up: Psych consult.
[2017-05-26 05:43] LABS: ALBUMIN 1.6 gm/dL (3.5-5.0); ANION GAP 9.8 (10.0-19.0); CHLORIDE 120 mMol/L (96-110); PHOSPHORUS 1.8 mg/dL (2.5-4.9); SODIUM 146 mMol/L (135-145)
--- NOTE | 2017-05-26 15:23 | NUR ---
A - ADVANCED LENGTH OF STAY 05/27 PER SHIFT REPORT, PT IS IRRITABLE AND ANGRY AT TIMES. RASH T/O BODY, IMPROVED. C-DIFF POSITIVE. PSY CONSULT 05/25. HT: 165.10 CM, WT: 139#, BMI: 23.1, IBW: 56.8 KG, %IBW: 111% LABS: NA 147, GLU 142, BUN 5, CREA 0.4, ALB 1.6, PO4 1.8, MG 1.4, A1C 7.3% MEDS: INSULIN NPH, CREON DIET: CONSISTENT CARBS W/ GLUCERNA BID. INTAKE 55% X10 MEALS. REFUSED ORAL SUPPLEMENT X2 NOTED. PT WAS EATING 75-100%. LAST 4 MEALS WAS 0-50%. EST NEEDS: 5765-9628 KCAL (25-30 KCAL/KG IBW), 57-68 GRAMS PROTEIN (1-1.2 GRAMS/KG IBW), FLUID NEEDS: 1ML/KCAL D - INADEQUATE ORAL INTAKE RELATED TO EMOTIONAL AT TIMES EVIDENCED BY PO 55% X10 MEALS. I - WILL DECREASE GLUCERNA TO ONCE DAILY AND ADDING HIGH PROTEIN SNACK ONCE DAILY FOR TRIAL SINCE PT REFUSED ORAL SUP X2. M/E - GOAL: PT WILL BE ABLE TO TOLERATE >65% OF MEALS AND AT LEAST ONE ORAL SUPPLEMENT/SNACK PER DAY IN 3-5 DAYS.
--- NOTE | 2017-05-26 17:10 | NUR ---
Significant Event: Patient alert and oriented. Vital signs stable, room air. Contact isolation for C diff. IV restarted in L) posterior forearm, 1/2 NS running. ACHS accu checks and carb counts. Very irritable, angry. Up with SBA and walker, refuses gait belt. Scheduled pain meds BID. Psych consult today, Dr. Candelaria recommended Abilify but no orders yet. Refused therapy. Refuses some meds. Follow Up: Monitor blood sugars, carb count. Monitor stools.
--- NOTE | 2017-05-27 04:36 | NUR ---
Significant Event:pt alert and oriented x3. pleasant with staff and cares. does have flat affect at times. vss during shift. pt tahmina pain when asked. complians of itching however states it is better with cream and benadryl. pt rest well during night. contient of bowel and bladder. 1 small contient bm. voids sufficent amounts of yellow urine. iv running fluids at 60ml/hr with no complications noted. pt uses call light approp. Follow up:
[2017-05-27 05:06] LABS: BASOPHIL % 0.6 %; EOSINOPHIL # 0.3 K/uL (0.0-0.5); EOSINOPHIL % 6.8 %; HEMATOCRIT 27.6 % (33.0-46.0); HEMOGLOBIN 9.9 g/dL (10.0-15.0); IMMATURE GRANULOCYTE % 0.2 %; LYMPHOCYTE # 1.8 K/uL (0.8-4.0); LYMPHOCYTE % 38.7 %; MCH 35.5 pg (27.0-34.0); MCHC 35.9 gm/dL (32.0-36.5); MCV 98.9 fl (83.0-98.0); MONOCYTE # 0.5 K/uL (0.0-1.0); MPV 11.1 fl (9.4-12.4); NEUTROPHIL % 43.7 %; NRBC % 0 /100WBC (0-0.00); PLATELET COUNT 173 K/uL (150-450); RBC 2.79 M/uL (3.50-5.50); RDW-CV 15.7 % (11.9-14.6); WBC 4.7 K/uL (4.0-11.0)
[2017-05-27 05:23] LABS: BLOOD UREA NITROGEN 4 mg/dL (6-24); CO2 20 mMol/L (22-32); CREATININE 0.4 mg/dL (0.5-1.1); ESTIMATED GFR (MDRD EQUATION) > 60; MAGNESIUM 1.3 mg/dL (1.8-2.6); PHOSPHORUS 2.1 mg/dL (2.5-4.9); POTASSIUM 3.1 mMol/L (3.7-5.1)
[2017-05-27 05:25] LABS: ALBUMIN 1.5 gm/dL (3.5-5.0); ANION GAP 11.1 (10.0-19.0); CALCIUM 7.3 mg/dL (8.5-10.5); CHLORIDE 120 mMol/L (96-110); SODIUM 148 mMol/L (135-145)
--- NOTE | 2017-05-27 14:44 | NUR ---
Faxed updates to [facility] #[phone] - Psych Consult and med change). Included on fax that patient may be ready for return to them tomorrow.
--- NOTE | 2017-05-27 18:13 | NUR ---
Significant Event: A/O x3, 1-assist with walker and gait belt. HRs 60s, SBPs 130s, afebrile. O2 remains >90% on RA. Voiding regularly, 6 loose stools today some incontinent. Diabetic diet, little appetite, drinking chicken broth and fluids. IV L) forearm with 1/2 NS running at 60ml/hr. Generalized rash on body, complains of itching. Does not complain of any pain. Remains in isolation for c-diff. Given 5-units for carb count. Follow up:Encourage solid foods. Return to [facility]
--- NOTE | 2017-05-27 18:40 | NUR ---
D: I have reviewed and agree with charting completed by BRITTANY Edwards.
--- NOTE | 2017-05-28 04:40 | NUR ---
Significant Event: alert and oriented x 3 ambulates with one assist gb walker. Has rash on upper back and chest. 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 IV to L FA running at 60ml/hr. Has accucheck with meals on routine insulin meds plus carb count. Was pleasant with staff. Follow up:
--- NOTE | 2017-05-28 10:35 | NUR ---
Spoke to Aviva at [facility]. She got my fax today. They can not provide transportation until Thursday because that is when they come to [place]. [address] Ford, patient can go today. 1045 Called [facility] #[phone]. They need a "connect wavier" from completed to get authorization for this trip. Gave me a number to call. 1050 Called patients guardian Evette to see if she can work on transportation however got her voicemail. Called number given #[phone] which was [facility]. Got forwarded to leave a message for patients optical laboratory mechanic Maria John. Left a message. 1155 Called Maria John and left another message. 1200 Maria called and she stated she reopened the Waiver. 1220 Called [employer], still dont have the right paperwork. 1230 Called Maria back, she directed me to the League. 1240 called the [employer] #[phone]. Hellen completed the "connect wavier form". 1255 Called [employer], [facility] will be here between 1084-1415. 1310 Called mundo Rangel to notify, called Aviva at [facility] and left a message for Evette-Alena. 1315 Spoke to patient. She needed clothes. Went to clothing closet and got her a set of clothes. Faxed orders. 1600 [facility] not here. Called [employer] got [employer]'s number #[phone]. Called and left a message with patients location at the hospital.
[2017-05-28] MEDS ORDERED: ARIPIPRAZOLE5 MG PO (12:56)
[2017-05-28] MEDS ORDERED: HUMULIN 70100 UNIT/M SUB-Q (13:11)
[2017-05-28] MEDS ORDERED: FLAGYL500 MG PO (13:12)
[2017-05-28] MEDS ORDERED: FLORASTOR250 MG PO (13:12)
[2017-05-28] MEDS ORDERED: OSCAL + D500 MG PO (13:20)
--- NOTE | 2017-05-28 16:30 | NUR ---
DISMISSED PER W/C TO FRONT DOOR BY INDUSTRIAL WASTE INSPECTOR TO [facility] FOR DISMISSAL TO [facility].DISCHARGE INTRUCTIONS EXPLAINED TO PT.& TRANSFER PAPERS ALSO SENT TO GIVE TO THE [facility]IVING.
[2017-08-06] MEDS ORDERED: ABILIFY2 MG PO (00:23)
[2017-08-06] MEDS ORDERED: MIRTAZAPINE7.5 MG PO (00:41)
[2017-08-06] MEDS ORDERED: NORCO 5-325 TA1 EACH PO (00:45)
[2017-08-06] MEDS ORDERED: ULTRAM50 MG PO (00:54)
[2017-08-06] MEDS ORDERED: VITAMIN A10000 UNIT PO ×2 (00:57→00:58)
[2017-08-06] MEDS ORDERED: ZEASORB71 GM TOP (00:59)
[2017-08-06] MEDS ORDERED: ZOFRAN4 MG PO (01:01)
[2017-08-06] MEDS ORDERED: CREON PO (11:29)
== END 2017-05-28 16:49 | DRG 607 ==
LOC: GMED 07:04 → GMSU 09:01
PROVIDERS: Emergency Medicine; Physician Assistant; Student in an Organized Health Care Education/Training Program; ADMIT Internal Medicine
DX: L27.0 Generalized skin eruption due to drugs and medicaments taken internally (principal); E87.0 Hyperosmolality and hypernatremia; A04.7 Enterocolitis due to Clostridium difficile; E11.65 Type 2 diabetes mellitus with hyperglycemia; N39.0 Urinary tract infection, site not specified; T42.6X5A Adverse effect of other antiepileptic and sedative-hypnotic drugs, initial encounter; E86.0 Dehydration; J45.909 Unspecified asthma, uncomplicated; F43.20 Adjustment disorder, unspecified; I25.10 Atherosclerotic heart disease of native coronary artery without angina pectoris; I10 Essential (primary) hypertension; B96.20 Unspecified Escherichia coli [E. coli] as the cause of diseases classified elsewhere; Z66 Do not resuscitate; Z87.891 Personal history of nicotine dependence; Z79.4 Long term (current) use of insulin
CPT/HCPCS: G0378; J0696; J1200; J1650; J2405; J2930; J3010; J3475; J3480; J7030; J7040; J7050; J7060; J7120; J7512